=== PATIENT | male | born 1985 | race Two or more races ===

== ENCOUNTER 2018-08-03 23:33 | Emergency (ER) | payer SELFPAY ==
[2018-08-03 23:48] VITALS: BP 116/69
[2018-08-04] MEDS ORDERED: PENICILLIN V POTASSIUM 500 MG TABLET PO ONE (00:26)
[2018-08-04] MEDS ORDERED: IBUPROFEN 600 MG TABLET PO ONE (00:26)
--- NOTE | 2018-08-04 00:30 | ER Document Report ---
HPI - HPI Patient complains to provider of: Tooth pain Time Seen by Provider: 08/04/18 00:26 Pain Level: 4 Context: Patient is a 33-year-old male presents to the emergency department for lower tooth pain. Patient states he has had right lower tooth pain for the last 2 days. States last time he took any Tylenol was around 11:00 this morning. Patient states it has been over 2 years since he has seen a dentist. States he typically goes to [facility] and has not yet contacted them. Past medical history: None Medications: None Allergies: None Past Medical History - General Information source: Patient - Social History Smoking Status: Current Every Day Smoker Family History: Reviewed & Not Pertinent Vertical Provider Document - CONSTITUTIONAL Agree With Documented VS: Yes Notes: GENERAL: Alert, interacts well. No acute distress. HEAD: Normocephalic, atraumatic. No facial swelling noted EYES: Pupils equal, round, and reactive to light. Extraocular movements intact. ENT: Oral mucosa moist, tongue midline. Tooth in question is #31 and #30. Minor erythema noted to the gumline, no area of fluctuance or induration noted. Both teeth have fillings in them, no obvious fracture seen. Patient has fillings in almost every tooth, otherwise dentition is in relatively good repair. NECK: Full range of motion. Supple. Trachea midline. No lymphadenopathy appreciated LUNGS: Clear to auscultation bilaterally, no wheezes, rales, or rhonchi. No respiratory distress. HEART: Regular rate and rhythm. No murmur ABDOMEN: Soft, non-tender. Non-distended. Bowel sounds present in all 4 quadrants. EXTREMITIES: Moves all 4 extremities spontaneously. No edema, normal radial and dorsalis pedis pulses bilaterally. No cyanosis. BACK: no cervical, thoracic, lumbar midline tenderness. No saddle anesthesia, normal distal neurovascular exam. NEUROLOGICAL: Alert and oriented x3. Normal speech. cranial nerves II through XII grossly intact PSYCH: Normal affect, normal mood. SKIN: Warm, dry, normal turgor. No rashes or lesions noted. - INFECTION CONTROL TRAVEL OUTSIDE OF THE [place] IN LAST 30 DAYS: No Course - Re-evaluation Re-evalutation: 08/04/18 00:28 Discussed use of anti-inflammatories and antibiotics. Discussed following up at [facility] or [facility]. Patient voices understanding, is stable for discharge. - Vital Signs Vital signs: Temp Pulse Resp BP Pulse Ox 97.6 F 71 16 116/69 96 08/03/18 23:42 08/03/18 23:42 08/03/18 23:42 08/03/18 23:42 08/03/18 23:42 Discharge - Discharge Clinical Impression: Toothache Condition: Stable Disposition: HOME, SELF-CARE Instructions: [facility], Penicillin V K ([facility]), Toothache ([facility]) Additional Instructions: As we discussed you have been seen and treated in the emergency department for a toothache. Please make sure you are taking Tylenol and Motrin for your generalized pain. Please alternate them every 3 hours. Please also take antibiotics as prescribed. Follow-up with your dentist or [facility]. Return to the emergency room for any other concerning symptoms. Prescriptions: Penicillin V Potassium [Penicillin Vk 500 mg Tablet] 500 mg PO BID #20 tablet Referrals: LOCALMD,NO [Primary Care Provider] - Follow up as needed
== END 2018-08-04 00:41 | disposition home or self-care (01) ==
LOC: ER 23:33
DX: K08.89 Other specified disorders of teeth and supporting structures (principal); F17.200 Nicotine dependence, unspecified, uncomplicated
CPT/HCPCS: 99282